=== PATIENT | male | born 1975 | race Hispanic/Latino ===

== ENCOUNTER 2016-06-02 10:17 | Emergency (ER) | payer OTHER ==
[2016-06-02] MEDS ORDERED: KETOROLAC 30 MG/1 ML VIAL IVP ONE (10:33)
[2016-06-02] MEDS ORDERED: ONDANSETRON 4 MG/2 ML VIAL IVP ONE (10:33)
[2016-06-02] MEDS ORDERED: Sodium Chloride 0.9% 1,000 ML PRIMARY IV ONE (10:33)
[2016-06-02] MEDS ORDERED: MORPHINE SULFATE 4 MG/1 ML IVP ONE (10:33)
[2016-06-02] MEDS ORDERED: DEXAMETHASONE PF 10 MG/1 ML VIAL IV ONE (10:33)
--- NOTE | 2016-06-02 10:40 | PDOC ---
Back Pain / Injury HPI - General Chief Complaint: Lower Extremity Problem/Injury Stated Complaint: SLIPPED ON ICE THURSDAY/BILAT HIP & TAILBONE PAIN Date Seen by Provider: 06/02/16 Time Seen by Provider: 10:35 Source: Patient Exam Limitations: POSITIVE: No limitations Nurse's Notes Reviewed & Considered: Yes - History of Present Illness Initial Comments: Patient fell on the ice last developed left hip left upper thigh and knee pain now with bilateral pain of his upper extremities wrapping around from his hips as well as pain in his tailbone. He denies any incontinence of urine or stool, no fever chills or sweats, no chest pain or shortness of breath, no nausea vomiting or diarrhea, no paresthesias in the perineal region, no hematuria or dysuria. Body Location Affected: REPORTS: Back Timing: REPORTS: Constant, Getting Worse Duration: >24 hours Severity: Severe Quality: REPORTS: "Pain", Sharpness, Throbbing, Tenderness Context: REPORTS: Sitting, Standing, Activity, Turning, Bending, Fall (Patient experienced a fall on the ice resulting in pain with any movement.) Location at Time of Onset: REPORTS: Street Modifying Factors: improves with: Nothing Associated Symptoms: REPORTS: Back pain Similar Symptoms Previously: Yes (approximately 1-1/2 years ago patient injured his back.) Recent Care Received: REPORTS: Denies Any Prior Injuries Related to Current Complaint?: Yes - Patient Home Medications Home Medications: Home Medications metFORMIN ER Tab [Glucophage XR Tab] 1,000 mg PO BID 08/16/15 - Patient Allergies Allergies/Adverse Reactions: Allergies Allergy/AdvReac Type Severity Reaction Status Date / Time No Known Allergies Allergy Verified 06/02/16 10:26 Past Medical History - heen HEENT History: Denies History Cardiovascular History: Denies History Respiratory History: Other (please comment) Additional Respiratory History: smoker 1/2 ppd Gastrointestinal History: Denies History Genitourinary History: Denies History Endocrine History: Type 2 Diabetes (oral) Musculoskeletal History: Back Pain, Back Injury, Other (please comment) Additional Musculoskeletal History: Low back pain, Lt hip pain x 1 year, original work injury 2005. degenerative disc disease Neurological History: Denies History Blood Disorders: Denies History Psychiatric History: Denies History Cancer History: Denies History History of MDRO: No Alcohol Use: None Substance Use Type: None Previous Surgical History: No Significant Family History: No pertinent family hx ROS - Limitations ROS Limitations: No Limitations Constitution: REPORTS: Chills Cardiovascular: REPORTS: Denies Cardiac Symptoms Respiratory: REPORTS: Denies Resp Symptoms Neurological: REPORTS: Difficulty Walking, Weakness Gastrointestinal: REPORTS: Denies GI Symptoms Endocrine: REPORTS: Denies Symptoms Musculoskeletal: REPORTS: Back Pain, Recent Injury Genitourinary: REPORTS: Denies Symptoms Eyes: REPORTS: Denies Symptoms ENT: REPORTS: Denies Symptoms Skin: REPORTS: Denies Skin Symptoms Lympathic: REPORTS: Denies Lympathic Symptoms Immunologic: POSITIVE: Denies Symptoms Psychiatric: POSITIVE: Denies Psych Symptoms Back Physical Assessment - General Appearance General Appearance: REPORTS: Alert, Cooperative, No Evidence of Trauma, Anxious , Moderate Distress - HEENT HEENT: POSITIVE: Head Inspection Nml, Eyes Inspection Nml, Ears Inspection Nml, Nose Inspection Nml, PERRL, EOMI - Pupil Size Pupil Size: 4 mm: Bilateral - Neck Neck: POSITIVE: Non Tender, Painless ROM, Trachea Midline - Respiratory / CVS Respiratory / CVS: POSITIVE: Chest Non Tender, No Ecchymosis, Breath Sounds Normal, No Respiratory Distress, Heart Sounds Normal, Regular Rate/Rhythm - Abdomen Abdomen: Soft: (All Quadrants), Normal Bowel Sounds: (All Quadrants), Denies Tenderness: (All Quadrants) - Back Back: REPORTS: Muscle Spasm (Paraspinal muscles of the bilateral lower spine), Limited ROM - Skin Skin: REPORTS: Intact, Normal For Race, Warm, Dry, No Rash - Extremities Extremity Assessment: Non-Tender: (ALL), No Edema: (ALL), Normal Inspection: ( ALL), No Swelling: (ALL), Pelvis Stable: (ALL) Musculoskeletal: REPORTS: Back Pain - Neurological / Psychological Neuro / Psych: POSITIVE: Oriented X3, clinical data assistant Normal As Tested, Sensation Normal, Mood Appropriate, Affect Appropriate, Motor Deficit, Other (Patellar reflexes on the right are diminished compared to the left with decreased strength in his right leg.) Reflexes: Patellar (R): 1+, Patellar (L): 3+ Back Progress - Results Reviewed by me Xrays/CTs/US Reviewed: Yes Discussed with Radiologist: Yes Lab Results Reviewed: Yes Lab Results:: Laboratory Results 06/02/16 Range/Units 10:49 WBC 11.50 H (4.8-10.8) 10^3/uL RBC 5.58 (4.70-6.10) 10^6/uL Hgb 16.1 (14.0-18.0) g/dL Hct 45.7 (42.0-52.0) % MCV 81.9 (80-90) FL MCH 28.9 (27-31) PG MCHC 35.2 (33-37) g/dL RDW Std Deviation 38.5 L (39-50) fL RDW Coeff of Yobani 13.0 (11.5-14.5) % Plt Count 474 H (140-350) 10*3/uL MPV 8.6 (7.4-12.2) FL Immature Gran % (Auto) 0.5 (0-5) % Neut % (Auto) 70.8 (50-80) % Lymph % (Auto) 21.6 (10-50) % Saline % (Auto) 6.4 (5-15) % Eos % (Auto) 0.5 (0-8) % Baso % (Auto) 0.2 (0-1) % Immature Gran # (Auto) 0.06 10*3/UL Neut # (Auto) 8.14 10*3/UL Lymph # (Auto) 2.48 10*3/uL Saline # (Auto) 0.74 (0.3-0.8) 10*3/UL Eos # (Auto) 0.06 10*3/UL Baso # (Auto) 0.02 10*3/UL WBC Morphology Comment Normal morphology (NORM) Plt Morphology Comment Normal morphology (NORM) RBC Morph Comment Normal morphology (NORM) ESR 7 (0-15) MM/HR Sodium 137 (135-145) meq/L Potassium 4.2 (3.8-5.2) meq/L Chloride 103 (98-112) meq/L Carbon Dioxide 23 (23-33) meq/L Anion Gap 11 (5-20) BUN 11 (7-22) mg/dL Creatinine 0.7 (0.70-1.50) mg/dL Estimated GFR > 60 (>60 ml/min/1.73m(2)) BUN/Creatinine Ratio 15.71 (6-20) Glucose 240 H (78-110) mg/dL Calculated Osmolality 290.0 (267-292) mOsm/kg Calcium 9.5 (8.7-10.7) mg/dL Magnesium 1.9 (1.6-2.4) mg/dL Total Bilirubin 0.6 (0.3-1.2) mg/dL AST 21 (21-57) IU/L ALT 38 (21-72) IU/L Alkaline Phosphatase 91 (38-126) IU/L C-Reactive Protein 1.9 H (0.0-0.9) mg/dL Total Protein 7.6 (6.1-8.0) g/dL Albumin 4.6 (3.5-4.8) g/dL Globulin 3.1 (2.50-4.10) g/dL Albumin/Globulin Ratio 1.40 (1.3-2.0) mg/g - Patient's Progress Pain Medication Addressed: POSITIVE: Yes Re-Examine Time: 12:55 Status: POSITIVE: Improved MDM / ED Course: Patient was brought back to the main emergency Department, examined, an IV was started, blood drawn and sent to lab for studies, and MRI obtained. He received IV Toradol, Zofran, normal saline. Symptoms did improve. Findings: MRI shows disc bulge but no impingement of the cord. Assessment: Low back pain acute on chronic. Plan: Discharge home, Med[facility] D[facility], [place], and follow-up with his doctor. - Consult Counseled: POSITIVE: Patient, RE: Lab Results, RE: Radiology Results, RE: DX, RE : Need for F/U Patient Care Time - Estimated PCT Patient Care Time (In Minutes): 45 Vital Signs - Recent Vital Signs Vital Signs: Vital Signs (Last 8 hours) Temp Pulse Resp BP Pulse Ox 06/02/16 10:17 98.2 F 102 H 17 124/89 94 - VS Reviewed Vital Signs Reviewed: Yes Discharge Clinical Impression: Acute exacerbation of chronic low back pain Discharge Disposition: Discharged to Home Condition: Stable Patient Instructions Given at Discharge: Back Pain (ED), Lower Back Exercises ( ED)
[2016-06-02 10:52] LABS: BASOPHILS # (AUTO) 0.02 10*3/UL; BASOPHILS % (AUTO) 0.2 % (0-1); EOSINOPHILS % (AUTO) 0.5 % (0-8); HEMATOCRIT 45.7 % (42.0-52.0); HEMOGLOBIN 16.1 g/dL (14.0-18.0); IMM GRAN % (AUTO) 0.5 % (0-5); IMM GRAN# (AUTO) 0.06 10*3/UL; LYMPHOCYTES # (AUTO) 2.48 10*3/uL; LYMPHOCYTES % (AUTO) 21.6 % (10-50); MEAN CORPUSCULAR HEMOGLOBIN 28.9 PG (27-31); MEAN CORPUSCULAR HGB CONC 35.2 g/dL (33-37); MEAN PLATELET VOLUME 8.6 FL (7.4-12.2); MONOCYTES # (AUTO) 0.74 10*3/UL (0.3-0.8); MONOCYTES % (AUTO) 6.4 % (5-15); NEUTROPHILS # (AUTO) 8.14 10*3/UL; NEUTROPHILS % (AUTO) 70.8 % (50-80); RED BLOOD COUNT 5.58 10^6/uL (4.70-6.10)
[2016-06-02 10:56] LABS: PLATELET MORPHOLOGY COMMENT NORMAL MORPHOLOGY (NORM)
[2016-06-02 11:07] LABS: ASPARTATE AMINO TRANSFERASE 21 IU/L (21-57); BILIRUBIN,TOTAL 0.6 mg/dL (0.3-1.2); BLOOD UREA NITROGEN 11 mg/dL (7-22); BUN/CREATININE RATIO 15.71 (6-20); C-REACTIVE PROTEIN 1.9 mg/dL (0.0-0.9); CALCIUM 9.5 mg/dL (8.7-10.7); CHLORIDE 103 meq/L (98-112); CREATININE 0.7 mg/dL (0.70-1.50); EST GLOMERULAR FILTRATION > 60 (>60 ml/min/1.73m(2)); GLUCOSE 240 mg/dL (78-110); MAGNESIUM 1.9 mg/dL (1.6-2.4); POTASSIUM 4.2 meq/L (3.8-5.2); SODIUM 137 meq/L (135-145); TOTAL PROTEIN 7.6 g/dL (6.1-8.0)
[2016-06-02 11:13] VITALS: RESP 17; TEMP 98.2
[2016-06-02 11:36] LABS: ERYTHROCYTE SEDIMENTATION RATE 7 MM/HR (0-15)
--- NOTE | 2016-06-02 12:45 | DI ---
MRI LUMBAR SPINE SCAN WITHOUT IV CONTRAST, 06/02/2016 10:33 AM: Clinical History: Acute low back pain with difficulty ambulating. Previous Exam: None. Technique: Sagittal and axial T2 weighted; sagittal T1 weighted and T2 STIR; and axial PD. The vertebral bodies are of normal height and size. Moderate disc space narrowing is present from L2- 3 through L5-S1 and these levels also show desiccation change. The cord terminates at T12 and the con us medullaris is normal. The T11-12 through L1-2 disc spaces are normal. The disc spaces from L2-3 th rough L5-S1 all demonstrate central bulging but not herniated discs without canal or neural foraminal stenosis. Readin. There are bulging but not herniated discs without canal or neural foraminal stenosis from L2-3 th rough L5-S1. 2. The disc spaces from T11-12 through L2-3 are normal.
[2016-06-02] MEDS ORDERED: LORazepam 2 MG/1 ML VIAL IVP ONE (12:53)
--- NOTE | 2016-06-02 13:06 | DI ---
LUMBAR SPINE SERIES, 06/02/2016 10:33 AM: Clinical History: Low back pain. Previous Exam: 08/09/2015. AP and lateral views are submitted. The vertebral bodies are of normal height and size. There is multifocal lens inspector fidel disc space narrowing from L2-3 through L5-S1. The pedicles and posterior elements are unremarkabl e. Both SI joints are normal. Reading: Chronic disc space narrowing from L2-3 through L5-S1. There has been no interval change.
== END 2016-06-02 13:20 | disposition home or self-care (01) ==
LOC: ER 10:17
DX: M51.36 Other intervertebral disc degeneration, lumbar region (principal); M79.652 Pain in left thigh; M25.552 Pain in left hip; M25.562 Pain in left knee; M54.5 Low back pain; E11.9 Type 2 diabetes mellitus without complications; W00.0XXA Fall on same level due to ice and snow, initial encounter
CPT/HCPCS: 72100; 72148; 80053; 83735; 85025; 85652; 86140; 96361; 96374; 96375; 99283; 99284; J1885; J1100; J2060; J2405; J7030

== ENCOUNTER 2016-06-10 18:23 | Emergency (ER) | payer OTHER ==
[2016-06-10] MEDS ORDERED: NORMAL SALINE 10 ML SYRINGE FLUSH IVP PRN (19:12)
[2016-06-10] MEDS ORDERED: KETOROLAC 15 MG/1 ML VIAL IVP ONE (19:13)
[2016-06-10] MEDS ORDERED: Sodium Chloride 0.9% 1,000 ML PRIMARY IV ONE (19:14)
[2016-06-10 19:17] VITALS: TEMP 98.7
[2016-06-10] MEDS ORDERED: LIDOCAINE 2%/ EPI 1:200,000 - 20 ML VIAL SUBCUT ONE (19:20)
[2016-06-10] MEDS: MORPHINE SULFATE 4 MG/1 ML IVP ONE ×2 (19:45→19:47)
[2016-06-10] MEDS ORDERED: Levofloxacin 500mg (Premix) 500 MG in Dextrose 1 BAG IV ONE (20:29)
[2016-06-10] MEDS ORDERED: oxyCODONE/APAP 10/325 Tab 1 EACH TAB PO SCH (20:30)
[2016-06-10] MEDS ORDERED: Levofloxacin 500mg (Premix) 100 ML IV ONE (20:38)
--- NOTE | 2016-06-10 21:23 | PDOC ---
Male Genitourinary Problem HPI - General Chief Complaint: Genitourinary Complaint Stated Complaint: SCROTUM MASS Date Seen by Provider: 06/10/16 Time Seen by Provider: 18:40 - History of Present Illness Initial Comments: Patient is a very nice 41-year-old male who presents to the emergency department after prompting from his local primary care doctor due to likely scrotal abscess. He's had increasing pain and some drainage from a scrotal mass /abscess over last couple of days this is getting worse not better and he is seeking evaluation. He denies nickie fever or chills he has no urinary complaints currently. He denies any nausea vomiting. - Patient Home Medications Home Medications: Home Medications metFORMIN ER Tab [Glucophage XR Tab] 1,000 mg PO BID 08/16/15 Levofloxacin [Levaquin] 500 mg PO DAILY #14 tab 06/10/16 Oxycodone HCl/Acetaminophen [Percocet 10-325 Mg Tablet] 1 each PO Q4H PRN PRN # 20 tablet 06/10/16 - Patient Allergies Allergies/Adverse Reactions: Allergies Allergy/AdvReac Type Severity Reaction Status Date / Time No Known Allergies Allergy Verified 06/10/16 18:38 Past Medical History - heen HEENT History: Denies History Additional HEENT History: WEARS GLASSES Cardiovascular History: Denies History Respiratory History: Other (please comment) Additional Respiratory History: smoker 1 ppd Gastrointestinal History: Denies History Genitourinary History: Denies History Endocrine History: Type 2 Diabetes (oral) Musculoskeletal History: Back Pain, Back Injury, Other (please comment) Prosthesis or Implant: No Additional Musculoskeletal History: Low back pain, Lt hip pain x 1 year, original work injury 2005. degenerative disc disease Neurological History: Denies History Blood Disorders: Denies History Psychiatric History: Denies History History of Sexually Transmitted Diseases: No Male Reproductive History: Denies History Cancer History: Denies History In Past Year Been Physically Harmed or Verbally Threatened: No History of MDRO: No History of Other Communicable Diseases: No Tobacco Use: Current Every Day Smoker Alcohol Use: None Substance Use Type: None Previous Surgical History: No Significant Family History: No pertinent family hx Past Medical History Reviewed: Reviewed - No Changes ROS - Limitations ROS Limitations: No Limitations Constitution: REPORTS: Denies Symptoms Cardiovascular: REPORTS: Denies Cardiac Symptoms Respiratory: REPORTS: Denies Resp Symptoms Male Genitourinary Exam - General Appearance General Appearance: POSITIVE: Alert, Cooperative - Abdomen Abdomen: Soft: (All Quadrants), Denies Tenderness: (All Quadrants) - Genital / Rectal Genitals: POSITIVE: Other (Patient has a abscess in the right lateral portion of his scrotum that goes up into his inguinal area a bit. There is a soft area of fluctuance and then indurated tissue around this area of fluctuance approximately 8 cm x 4 cm in dimension.) Procedure - Incision and Drainage Local Anesthesia Used - Indicate Amt Used in Comment: Lidocaine 2% with Epinephrine: Yes Blade Size: 10 I & D Procedure: gauze wick placed I&D Treatment: Purulent Drainage, Large Amount, Probed to Brk Loculations, Packed w/ Gauze Male Genitourinary Progress - Results Reviewed by me Lab Results Reviewed: Yes - Patient's Progress MDM / ED Course: After the patient's scrotum was incised and drained a wick gauze was placed. He was given IV dose of Levaquin and encouraged follow-up with urology tomorrow. He is nontoxic is not febrile is not tachycardic he does a fair bit of pain and so he sent with some oxycodone tablets and a prescription for some more. He is also sent with a prescription for further Levaquin as well. He is informed that he needs to get in with urology as soon as possible preferably tomorrow. Patient Care Time - Estimated PCT Patient Care Time (In Minutes): 40 Vital Signs - Recent Vital Signs Vital Signs: Vital Signs (Last 8 hours) Temp Pulse Resp BP Pulse Ox 06/10/16 18:30 98.7 F 123 H 16 159/97 97 - VS Reviewed Vital Signs Reviewed: Yes Discharge Clinical Impression: Scrotal abscess Discharge Disposition: Discharged to Home Condition: Good Prescriptions / Orders: Oxycodone HCl/Acetaminophen [Percocet 10-325 Mg Tablet] 1 each PO Q4H PRN PRN # 20 tablet PRN Reason: Pain Levofloxacin [Levaquin] 500 mg PO DAILY #14 tab Patient Instructions Given at Discharge: Abscess (ED) Additional Instructions: Follow-up with urologist tomorrow to reevaluate your scrotal abscess Return with any worsening of symptoms or other substantial complaints tonight Use her pain medication as prescribed Use Levaquin 1 tablet daily as prescribed Follow Up With: NONE,NONE [Primary Care Provider] -
[2016-06-10 22:32] VITALS: RESP 18
== END 2016-06-10 21:42 | disposition home or self-care (01) ==
LOC: ER 18:23
DX: N49.2 Inflammatory disorders of scrotum (principal)
CPT/HCPCS: 87070; 87075; 87205; 96361; 96365; 96375; 99283; J1885; J1956; J2270; J7030

== ENCOUNTER → 2016-06-20 | Outpatient (CLI) | payer OTHER ==
[2016-06-20 15:43] LABS: BLOOD UREA NITROGEN 11 mg/dL (7-22); BUN/CREATININE RATIO 15.71 (6-20); CALCIUM 10.1 mg/dL (8.7-10.7); EST GLOMERULAR FILTRATION > 60 (>60 ml/min/1.73m(2)); SERUM ALBUMIN 4.3 g/dL (3.5-4.8)
[2016-06-20 15:44] LABS: HEMOGLOBIN A1C 12.68 % (4.2-6.0)
== END ==
LOC: LAB 09:23
PROVIDERS: ATTEND Physician Assistant Medical
DX: E11.628 Type 2 diabetes mellitus with other skin complications (principal); N49.2 Inflammatory disorders of scrotum; F17.210 Nicotine dependence, cigarettes, uncomplicated
CPT/HCPCS: 80053; 83036

== ENCOUNTER → 2016-11-14 | Outpatient (CLI) | payer OTHER ==
[2016-11-14 15:10] LABS: HEMOGLOBIN A1C 5.69 % (4.2-6.0)
[2016-11-14 15:12] LABS: BLOOD UREA NITROGEN 15 mg/dL (7-22); BUN/CREATININE RATIO 18.75 (6-20); CALCIUM 9.9 mg/dL (8.7-10.7); EST GLOMERULAR FILTRATION > 60 (>60 ml/min/1.73m(2)); SERUM ALBUMIN 4.3 g/dL (3.5-4.8)
== END ==
LOC: LAB 08:35
PROVIDERS: ATTEND Physician Assistant Medical
DX: E11.9 Type 2 diabetes mellitus without complications (principal)
CPT/HCPCS: 80053; 83036